=== PATIENT | female | born 1960 | race Caucasian/White ===

== ENCOUNTER → 2019-03-24 | Outpatient (CLI) | payer BC ==
--- NOTE | 2019-03-25 08:46 | MM ---
Reason for exam: screening (asymptomatic). History: Patient is postmenopausal. Physical Findings: A clinical breast exam by your physician is recommended on an annual basis and results should be correlated with mammographic findings. MG Screening Mammo w CAD Bilateral CC, MLO, and XCCL view(s) were taken. No prior studies available for comparison. The breast tissue is heterogeneously dense. This may lower the sensitivity of mammography. There is no discrete abnormality. No significant changes when compared with prior studies. ASSESSMENT: Negative, BI-RAD 1 RECOMMENDATION: Routine screening mammogram of both breasts in 1 year.
== END ==
LOC: RADMAMWWP 11:30
PROVIDERS: ATTEND Family Medicine
DX: Z12.31 Encounter for screening mammogram for malignant neoplasm of breast (principal)
CPT/HCPCS: 77067

== ENCOUNTER → 2023-06-24 | Outpatient (CLI) | payer BC ==
--- NOTE | 2023-06-24 11:17 | CA ---
Stress Echo Report Sirena Diallo Age: 62 Gender: F : 1960 Exam Date: 06/24/2023 09:36 Exam Location: [place] [facility] Ht (in): 67 Wt (lb): 200 Ordering Physician: Jak Reich MD Referring Physician: Freda Abreu PAC Sql Programmer Analyst: Catalina Campbell RDCS Technologist Procedure CPT: Indication: R07.89 other chest pain ICD-9 Codes: Rhythm: Patient History: Chest pain Cardiac Medications: Medications in past 24 hours: Contrast: Stress Results Protocol: Tomer Total dose(mL): Exercise Duration (min:sec): 6:[address] Depression (mm): Angina Score: Medrano Score: METS: 7.7 Resting HR: 97 Resting BP: 119 / 65 Peak HR: 147 Peak BP: 197 / 91 Max Predicted HR: 156 94 % Max Predicted HR Target HR: 133 Double Product: 94248 Stress Summary: The patient's target heart rate was achieved BP Response: Normal Reason for Termination: MAX EXERTION/TARGET HR Cardiac Symptoms: NO SYMPTOMS ECG Analysis Resting ECG: Stress ECG: Arrhythmia: Echo Analysis Resting Echo: Peak Echo Analysis: MEASUREMENTS (Male/Female) Normal Values CONCLUSIONS Average exercise capacity and a Tomer protocol of 6 a half minutes Peak heart rate 141 bpm Normal blood pressure response No ECG evidence for ischemia No echocardiographic evidence for ischemia Dr. Maikol Blanco MD (Electronically Signed) Final Date: 24 June 2023 11:16
== END | disposition home or self-care (01) ==
LOC: RADNMMAIN 08:55
PROVIDERS: ATTEND Family Medicine
DX: R07.89 Other chest pain (principal)
CPT/HCPCS: 93351

== ENCOUNTER → 2025-05-10 | Outpatient (CLI) | payer MEDICARE ==
--- NOTE | 2025-05-10 11:04 | MM ---
Reason for Exam: Screening (asymptomatic). Last mammogram was performed 2 year(s) and 0 month(s) ago. Patient History: Menarche at age 11. First Full-Term at age 22. Postmenopausal. Patient used Hormonal Contraceptives for 1 year. Risk Values: Jodi 5 year model risk: 1.5%. NCI Lifetime model risk: 5.4%. Prior Study Comparison: 03/24/2019 Bilateral Screening Mammogram, [facility]. 05/25/2023 Bilateral MG 3D diag mammo w/cad [facility] - 2, Unknown. Tissue Density: There are scattered areas of fibroglandular density. Findings: Analyzed By CAD. Stable chronic nodularity in the left breast. Prominent right axillary lymph nodes are now seen. There is no suspicious group of microcalcifications in either breast. Overall Assessment: Incomplete: need additional imaging evaluation, BI-RAD 0 Management: Diagnostic Breast Ultrasound of the right breast. Targeted ultrasound right axilla. Patient should continue monthly self-breast exams. A clinical breast exam by your physician is recommended on an annual basis. This exam should not preclude additional follow-up of suspicious palpable abnormalities. Note on Jodi scores and lifetime risk: 1. A Jodi score greater than 3% is considered moderate risk. If this is the case, consider specialist referral to assess eligibility for a risk reducing agent. 2. If overall lifetime risk for the development of breast cancer is 20% or higher, the patient may qualify for future screening with alternating mammogram and breast MRI. [facility], , 05/10/2025 11:00 AM. Electronically signed and approved by: Jaylan Espinosa M.D.
== END | disposition home or self-care (01) ==
LOC: RADMAMWWP 09:18
PROVIDERS: ATTEND Family Medicine
DX: Z12.31 Encounter for screening mammogram for malignant neoplasm of breast (principal); R92.323 Mammographic fibroglandular density, bilateral breasts; Z78.0 Asymptomatic menopausal state; Z92.0 Personal history of contraception; N63.20 Unspecified lump in the left breast, unspecified quadrant
CPT/HCPCS: 77063; 77067

== ENCOUNTER → 2025-05-15 | Outpatient (CLI) | payer MEDICARE ==
--- NOTE | 2025-05-15 08:01 | USB ---
Reason for Exam: Additional evaluation requested from prior study. Patient History: Menarche at age 11. First Full-Term at age 22. Postmenopausal. Patient used Hormonal Contraceptives for 1 year. Risk Values: Jodi 5 year model risk: 1.5%. NCI Lifetime model risk: 5.4%. Technique: Method: Targeted. Prior Study Comparison: 03/24/2019 Bilateral Screening Mammogram, [facility]. 05/25/2023 Bilateral MG 3D diag mammo w/cad [facility]ACE - 2, Unknown. 05/10/2025 Bilateral MG 3D screening mammo w/cad, [facility]. Findings: The axilla of the right breast was scanned. There are 2 stable lymph nodes seen within the right axilla without cortical thickness or enlargement. Lymph nodes measure less than a centimeter each. No suspicious masses seen. Overall Assessment: Benign, BI-RAD 2 Management: Screening Mammogram of both breasts in 1 year. A clinical breast exam by your physician is recommended on an annual basis and results should be correlated with mammographic findings. This exam should not preclude additional follow-up of suspicious palpable abnormalities. Results were given to the patient verbally at the time of exam. [facility], , 05/15/2025 7:57 AM. Electronically signed and approved by: Ezio Kay M.D. Radiologis
== END | disposition home or self-care (01) ==
LOC: RADUSWWP 07:24
PROVIDERS: ATTEND Family Medicine
DX: R92.8 Other abnormal and inconclusive findings on diagnostic imaging of breast (principal); Z78.0 Asymptomatic menopausal state; Z92.0 Personal history of contraception